=== PATIENT | male | born 1995 | race Caucasian/White ===

== ENCOUNTER 2016-05-26 12:21 | Emergency (ER) | payer BC, MEDICAID, OTHER ==
[~2016-05-26] VITALS: Ht 175.3 cm; Wt 83.0 kg
[2016-05-26 12:32] VITALS: Ht 175.3 cm; Wt 83.0 kg
[2016-05-26] MEDS ORDERED: IBUP800T25 PO (14:20)
[2016-05-26] MEDS ORDERED: ACET325T33 PO (14:20)
[2016-05-26] MEDS ORDERED: ONDA4TAB14 PO (14:20)
--- NOTE | 2016-05-26 15:51 | ERD ---
DATE OF SERVICE: 05/26/2016 HISTORY OF PRESENT ILLNESS: The patient is a 20-year-old male coming in complaining of headache wit h vomiting and tactile fevers for the last 2 days. Patient's fever yesterday was 102 and last dose of Tylenol was taken this morning at 9:00 a.m., approximately 6-1/2 hours prior to evaluation. He h as had nausea, but no abdominal pain, diarrhea, he has had vomiting, no recent travels. Positive so re throat. Positive runny nose, positive cough and body aches. PAST MEDICAL HISTORY: Denies medical problems. ALLERGIES: DENIES. MEDICATIONS: Denies. SURGICAL HISTORY: Denies. SOCIAL HISTORY: Smokes marijuana. REVIEW OF SYSTEMS: A 12-point review of systems was done. Refer to HPI for positives, all other sy stems negative. PHYSICAL EXAMINATION VITAL SIGNS: Temperature is 99.5, pulse 99, blood pressure is 129/59, respiratory 18, O2 saturation 98% on room air. Pain intensity 8/10. GENERAL: The patient is well-appearing, well-nourished, no acute distress. HEENT: Atraumatic. Conjunctivae are pink. Pupils equal, round, and reactive to light. There is no s cleral icterus. Tympanic membranes clear bilaterally. Oropharynx clear. No nystagmus or photophobia . CHEST: Clear to auscultation bilaterally. There are no rales, wheezes or rhonchi. HEART: Regular rate and rhythm. No murmurs, clicks, rubs or gallops. No S3 or S4. ABDOMEN: Soft, nontender and nondistended. Good bowel sounds. No rebound or guarding. No gross yara tonitis. No gross organomegaly or masses. No Darnell sign or McBurney point tenderness. SKIN: There is no apparent rash or petechia. The skin is warm and dry. DIAGNOSIS: Viral illness. MEDICAL DECISION MAKING: Patient may have influenza; however, vital signs are stable. Have low ortega spicion for pneumonia. Patient's breath sounds are within normal limits. Low suspicion for meningi tis or sepsis. The patient is nontoxic appearing and does not show signs of nuchal rigidity. Low s uspicion for bacterial HEENT infection, exam is within normal limits. DISCHARGE: The patient is discharged stable. Patient given a prescription for Zofran, Tylenol and ibuprofen and told to follow up with primary care within 1 to 2 days for reevaluation. The patient was told if symptoms progress or worsen to return to the ER. All other questions answered at time o f discharge. Discharge summary given at the time of departure. Patient understood and complied wit h plan. Dictated By: GABI CHAMBERLAIN for ISABELL VALENZUELA/ABDIRAHMAN Conf#: [id number] DID#: [id number]
== END 2016-05-26 14:30 | disposition home or self-care (01) ==
LOC: FTE 12:21
DX: B34.9 Viral infection, unspecified (principal); R11.10 Vomiting, unspecified
CPT/HCPCS: 99283

== ENCOUNTER 2016-11-01 23:55 | Emergency (ER) | payer SELFPAY ==
[~2016-11-01] VITALS: Ht 175.3 cm; Wt 81.5 kg
[~2016-11-01 23:55] MED LIST: ACET325T33 PO; IBUP800T25 PO; ONDA4TAB14 PO
[2016-11-02 00:07] VITALS: Ht 175.3 cm; Wt 81.5 kg
[2016-11-02] MEDS ORDERED: DIPHTH/TET/ACEL PERTUSS (ADULT) 0.5 ML VIAL IM* ONE (00:30)
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
[2016-11-02] MEDS ORDERED: AMOX1TAB10 PO (01:59)
[2016-11-02] MEDS ORDERED: IBUP-1542 PO (01:59)
== END 2016-11-02 02:26 | disposition home or self-care (01) ==
LOC: FTE 23:55
DX: S01.511A Laceration without foreign body of lip, initial encounter (principal); Y04.8XXA Assault by other bodily force, initial encounter; Y92.9 Unspecified place or not applicable; Z23 Encounter for immunization
CPT/HCPCS: 70486; 90471; 90715